=== PATIENT | female | born 1970 | race Caucasian/White ===

== ENCOUNTER → 2016-10-02 | Outpatient (CLI) | payer OTHER ==
--- NOTE | 2016-10-02 09:56 | USB ---
Reason for exam: follow-up at short interval from prior study. History: Took hormonal contraceptives for 11 years. Physical Findings: Nurse did not find any significant physical abnormalities on exam. US Breast BILAT Right breast ultrasound includes all four quadrants, the retroareolar region and axilla. Finding demonstrates a 0.7 x 0.6 x 0.4cm oval, cystic lesion at 5 o' clock versus 5 x 4 x 7mm previously, a 0.3 x 0.4 x 0.2cm oval, cystic lesion at 6 o'clock, a 0.9 x 0.9 x 0.5cm cystic cluster or two adjacent cysts at 7 o'clock and a 0.6 x 0.6 x 0.4cm oval, cystic lesion at 11 o'clock, slightly larger, previously 4 x 3 x 3mm but now completely simple in appearance. Left breast ultrasound includes all four quadrants, the retroareolar region and axilla. Finding demonstrates a 0.9 x 0.7 x 0.4cm oval, cystic lesion at 1 o' clock, a 0.9 x 0.7 x 0.3cm oval, cystic lesion at 3 o'clock, a 1.0 x 1.0 x 0.5cm oval, cystic lesion at 5 o'clock and a 0.7 x 0.6 x 0.6cm two adjacent cysts at 10 o'clock. These results were verbally communicated with the patient and result sheet given to the patient on 10/02/16. ASSESSMENT: Benign, BI-RAD 2 RECOMMENDATION: Routine screening mammogram of both breasts in 6 months. (Conisderation can be given to ordering this as a diagnostic exam given the pateint's breast nodularity) [facility]
== END | disposition home or self-care (01) ==
LOC: RADUSWWP 08:17
PROVIDERS: ATTEND Obstetrics & Gynecology
DX: R92.8 Other abnormal and inconclusive findings on diagnostic imaging of breast (principal)

== ENCOUNTER → 2018-04-19 | Outpatient (CLI) | payer OTHER ==
--- NOTE | 2018-04-22 09:38 | MM ---
Reason for exam: screening (asymptomatic). Last mammogram was performed 1 year ago. History: Took hormonal contraceptives for 11 years. Physical Findings: A clinical breast exam by your physician is recommended on an annual basis and results should be correlated with mammographic findings. MG 3D Screening Mammo W/Cad Bilateral CC and MLO view(s) were taken. Prior study comparison: April 18, 2017, bilateral MG 3d screening mammo w/cad. March 07, 2016, right breast MG 3d work up w/cad RT. The breast tissue is extremely dense which could obscure a lesion on mammography. Stable benign calcifications. There is chronic nodularity bilaterally. No significant changes when compared with prior studies. ASSESSMENT: Benign, BI-RAD 2 RECOMMENDATION: Routine screening mammogram of both breasts in 1 year.
== END ==
LOC: RADMAMWWP 07:27
PROVIDERS: ATTEND Obstetrics & Gynecology
DX: Z12.31 Encounter for screening mammogram for malignant neoplasm of breast (principal)
CPT/HCPCS: 77063; 77067

== ENCOUNTER → 2019-05-09 | Outpatient (CLI) | payer OTHER ==
--- NOTE | 2019-05-09 13:58 | MM ---
Reason for exam: screening (asymptomatic). Last mammogram was performed 1 year and 1 month ago. History: Took hormonal contraceptives for 11 years. Physical Findings: A clinical breast exam by your physician is recommended on an annual basis and results should be correlated with mammographic findings. MG 3D Screening Mammo W/Cad Bilateral CC and MLO view(s) were taken. Prior study comparison: April 19, 2018, bilateral MG 3d screening mammo w/cad. April 18, 2017, bilateral MG 3d screening mammo w/cad. The breast tissue is extremely dense which could obscure a lesion on mammography. There are benign appearing round oval circumscribed left masses waxing and waning over multiple prior exams most mammographically compatible with cysts. No suspicious abnormality. No significant changes when compared with prior studies. ASSESSMENT: Benign, BI-RAD 2 RECOMMENDATION: Routine screening mammogram of both breasts in 1 year.
== END | disposition home or self-care (01) ==
LOC: RADMAMWWP 07:02
PROVIDERS: ATTEND Obstetrics & Gynecology
DX: Z12.31 Encounter for screening mammogram for malignant neoplasm of breast (principal)
CPT/HCPCS: 77063; 77067

== ENCOUNTER → 2020-04-29 | Outpatient (CLI) | payer OTHER ==
--- NOTE | 2020-04-29 11:58 | BD ---
EXAMINATION TYPE: Axial Bone Density DATE OF EXAM: 04/29/2020 COMPARISON: NONE CLINICAL HISTORY: Screening for osteoporosis, Z 13.820, N 95.1 Height: 5 FT 7 IN Weight: 163 FRAX RISK QUESTIONS: Alcohol (3 or more units per day): NO Family History (Parent hip fracture): NO Glucocorticoids (More than 3mos): NO (Ex: prednisone, prednisolone, methylprednisolone, dexamethasone, and hydrocortisone). History of Fracture in Adulthood: NO Secondary Osteoporosis: 1. Type 1 Diabetes: NO 2. Hyperthyroidism: NO 3. Menopause before 45: NO 4. Malnutrition: NO 5. Chronic liver disease: NO Rheumatoid Arthritis: NO Current Tobacco Use: NO RISK FACTORS HISTORY OF: Active: SOMEWHAT Diet low in dairy products/other sources of calcium: NO Postmenopausal woman: [place]ATION AGE 41 NO SYMPTOMS OF MENOPAUSE MEDICATIONS: Additional Medications: ZETIA Additional History: EXAM MEASUREMENTS: Bone mineral densitometry was performed using the [employer]. Bone mineral density as measured about the Lumbar spine is: ----- L1-L4(G/cm2): 1.293 T Score Values are as follows: ----- L2: 0.9 ----- L3: 1.2 ----- L4: -0.1 ----- L1-L4: 0.9 BASELINE Bone mineral density about the R hip (g/cm2): 0.944 Bone mineral density about the L hip (g/cm2): 0.939 T Score values are as follows: -----R Neck: -0.7 -----L Neck: -0.7 -----R Total: -0.2 -----L Total: -0.1 BASELINE IMPRESSION: Normal (Values between +1 and -1 indicate normal bone mass). Consider repeating this study in 5 year s or sooner if there is some new clinical indication. NOTE: T-SCORE=SD OF THE YOUNG ADULT MEAN.
== END | disposition home or self-care (01) ==
LOC: RADBDWWP 08:34
PROVIDERS: ATTEND Obstetrics & Gynecology
DX: Z13.820 Encounter for screening for osteoporosis (principal)
CPT/HCPCS: 77080

== ENCOUNTER → 2020-05-12 | Outpatient (CLI) | payer OTHER ==
--- NOTE | 2020-05-14 09:27 | MM ---
Reason for exam: screening (asymptomatic). Last mammogram was performed 1 year ago. History: Took hormonal contraceptives for 11 years. Physical Findings: A clinical breast exam by your physician is recommended on an annual basis and results should be correlated with mammographic findings. MG 3D Screening Mammo W/Cad Bilateral CC, MLO, and XCCL view(s) were taken. Prior study comparison: May 09, 2019, bilateral MG 3d screening mammo w/cad. April 19, 2018, bilateral MG 3d screening mammo w/cad. The breast tissue is extremely dense which could obscure a lesion on mammography. There is chronic nodularity bilaterally. No significant changes when compared with prior studies. ASSESSMENT: Benign, BI-RAD 2 RECOMMENDATION: Routine screening mammogram of both breasts in 1 year.
== END | disposition home or self-care (01) ==
LOC: RADMAMWWP 08:11
PROVIDERS: ATTEND Obstetrics & Gynecology
DX: Z12.31 Encounter for screening mammogram for malignant neoplasm of breast (principal)
CPT/HCPCS: 77063; 77067

== ENCOUNTER → 2021-06-17 | Outpatient (CLI) | payer OTHER ==
--- NOTE | 2021-06-20 14:47 | MM ---
Reason for exam: screening (asymptomatic). Last mammogram was performed 1 year and 1 month ago. History: Took hormonal contraceptives for 11 years. Physical Findings: A clinical breast exam by your physician is recommended on an annual basis and results should be correlated with mammographic findings. MG 3D Screening Mammo W/Cad Bilateral CC and MLO view(s) were taken. Prior study comparison: May 12, 2020, bilateral MG 3d screening mammo w/cad. May 09, 2019, bilateral MG 3d screening mammo w/cad. Finding: There is a typically benign 19 mm equal density (isodense), circumscribed round mass in the lower inner quadrant, middle position of the left breast. No significant changes in finding since May 12, 2020 and May 09, 2019. ASSESSMENT: Benign, BI-RAD 2 RECOMMENDATION: Routine screening mammogram of both breasts in 1 year.
== END | disposition home or self-care (01) ==
LOC: RADMAMWWP 07:15
PROVIDERS: ATTEND Obstetrics & Gynecology
DX: Z12.31 Encounter for screening mammogram for malignant neoplasm of breast (principal)
CPT/HCPCS: 77063; 77067

== ENCOUNTER → 2022-06-19 | Outpatient (CLI) | payer OTHER ==
--- NOTE | 2022-06-19 17:55 | MM ---
Reason for Exam: Screening (asymptomatic). Last screening mammogram was performed 12 month(s) ago. Patient History: Menarche at age 11. First Full-Term at age 29. Late child-bearing (after 30). Postmenopausal. Patient used Hormonal Contraceptives for 11 years. Risk Values: Risa 5 year model risk: 1.5%. NCI Lifetime model risk: 11.8%. Prior Study Comparison: 05/09/2019 Bilateral Screening Mammogram, [facility]. 05/12/2020 Bilateral Screening Mammogram, [facility]. 06/17/2021 Bilateral Screening Mammogram, [facility]. Tissue Density: The breast tissue is heterogeneously dense. This may lower the sensitivity of mammography. Findings: Analyzed By CAD. There is no suspicious group of microcalcifications or new suspicious mass in either breast. No persistent abnormality on 3-D images. Overall Assessment: Negative, BI-RAD 1 Management: Screening Mammogram of both breasts in 1 year. 1. Patient should continue monthly self breast exams. 2. A clinical breast exam by your physician is recommended on an annual basis. 3. This exam should not preclude additional follow-up of suspicious palpable abnormalities. Electronically signed and approved by: Pasquale Berry M.D. Radiologist
== END | disposition home or self-care (01) ==
LOC: RADMAMWWP 07:33
PROVIDERS: ATTEND Obstetrics & Gynecology
DX: Z12.31 Encounter for screening mammogram for malignant neoplasm of breast (principal); Z78.0 Asymptomatic menopausal state
CPT/HCPCS: 77063; 77067

== ENCOUNTER → 2023-07-04 | Outpatient (CLI) | payer OTHER ==
--- NOTE | 2023-07-08 15:13 | MM ---
Reason for Exam: Screening (asymptomatic). Last mammogram was performed 1 year(s) and 1 month(s) ago. Patient History: Menarche at age 11. First Full-Term at age 29. Late child-bearing (after 30). Postmenopausal. Patient has history of breast feeding. Patient used Hormonal Contraceptives for 11 years. Risk Values: Risa 5 year model risk: 1.5%. NCI Lifetime model risk: 11.6%. Prior Study Comparison: 04/19/2018 Bilateral Screening Mammogram, [facility]. 05/09/2019 Bilateral Screening Mammogram, [facility]. 05/12/2020 Bilateral Screening Mammogram, [facility]. 06/17/2021 Bilateral Screening Mammogram, [facility]. 06/19/2022 Bilateral MG 3D screening mammo w/cad, [facility]. Tissue Density: The breast tissue is heterogeneously dense. This may lower the sensitivity of mammography. Findings: Analyzed By CAD. The pattern is symmetrical. There are round segmental calcifications within the upper outer middle left breast, a changed from comparison. Magnification views recommended. Right breast: No suspicious groups of microcalcifications, spiculated or lobular masses, architectural distortion or other secondary signs of malignancy are mammographically apparent. Overall Assessment: Incomplete: need additional imaging evaluation, BI-RAD 0 Management: Diagnostic Mammogram of the left breast. A negative mammogram report should not preclude additional follow up of suspicious palpable abnormalities. Patient should continue monthly self breast exam. A clinical breast exam by your physician is recommended on an annual basis and results should be correlated with mammographic findings. Electronically signed and approved by: Miguel Armendariz D.O. Radiologis
== END | disposition home or self-care (01) ==
LOC: RADMAMWWP 07:12
PROVIDERS: ATTEND Obstetrics & Gynecology
DX: Z12.31 Encounter for screening mammogram for malignant neoplasm of breast (principal); Z78.0 Asymptomatic menopausal state
CPT/HCPCS: 77063; 77067

== ENCOUNTER → 2023-07-11 | Outpatient (CLI) | payer OTHER ==
--- NOTE | 2023-07-11 08:28 | MM ---
Reason for Exam: Additional evaluation requested from abnormal screening. Last screening mammogram was performed less than 1 month ago. Patient History: Menarche at age 11. First Full-Term at age 29. Late child-bearing (after 30). Postmenopausal. Patient has history of breast feeding. Patient used Hormonal Contraceptives for 11 years. Risk Values: Risa 5 year model risk: 1.5%. NCI Lifetime model risk: 11.6%. Prior Study Comparison: 06/17/2021 Bilateral Screening Mammogram, [facility]. 06/19/2022 Bilateral MG 3D screening mammo w/cad, [facility]. 07/04/2023 Bilateral MG 3D screening mammo w/cad, [facility]. Tissue Density: Left: The breast tissue is heterogeneously dense. This may lower the sensitivity of mammography. Findings: Analyzed By CAD. Grouped amorphous calcifications 12-1 o'clock left breast middle depth persist on magnification views. Tissue sampling is recommended. Overall Assessment: Suspicious, BI-RAD 4 Management: Stereotactic Core Biopsy of the left breast. . Results were given to the patient verbally at the time of exam. Electronically signed and approved by: Pasquale Berry M.D. Radiologist
== END | disposition home or self-care (01) ==
LOC: RADMAMWWP 07:24
PROVIDERS: ATTEND Obstetrics & Gynecology
DX: R92.332 Mammographic heterogeneous density, left breast (principal); R92.1 Mammographic calcification found on diagnostic imaging of breast; Z78.0 Asymptomatic menopausal state
CPT/HCPCS: 77061; 77065

== ENCOUNTER → 2023-07-23 | Day surgery (SDC) | payer OTHER ==
[2023-07-23 07:45] VITALS: RESP 16
[2023-07-23 09:13] VITALS: BP 107/75; PULSE 70; TEMP 98.1
--- NOTE | 2023-07-31 07:46 | MM ---
Risk Values: Risa 5 year model risk: 1.5%. NCI Lifetime model risk: 11.6%. Prior Study Comparison: 06/19/2022 Bilateral MG 3D screening mammo w/cad, [facility]. 07/04/2023 Bilateral MG 3D screening mammo w/cad, [facility]. 07/11/2023 Left MG 3D work up w/cad , [facility]. Pathology Description: Marker Left Behind. Specimen Radiograph. Calcium Found: Yes Approach: CC FA Needle Type: Eviva Cores: 6 Skin Nicks: 1 Gauge: 9 The calcifications in question within the left breast were targeted by the undersigned. Procedure was performed by the undersigned. Informed consent was obtained and all of the patients questions were answered. The standard sterile technique was utilized and appropriate local anesthesia was obtained with 1% licocaine. Mammotome probe was advanced and multiple core samples were obtained and sent to pathology for interpretation. Microclip marker was deployed at the site of biopsy. Post procedural mammogram demonstrates appropriate deployment of radiopaque clip marker. The patient tolerated the procedure well and left the department in stable condition. Pathology results are pending. Impression: Successful stereotactic core biopsy left breast. Pathology Results: Result: High risk, Atypical lobular hyperplasia. LEFT BREAST, STEREOTACTIC CORE BIOPSY: Features of atypical lobular hyperplasia (ALH) with focal features suspicious for lobular carcinoma in situ (LCIS). See note. Fibrocystic change with fibrosis, focal microcalcification and apocrine metaplasia present. Focal benign adenosis. Notes In order to confirm the diagnosis, immunostaining with E-Cadherin is performed with appropriate controls on block A2. E-Cadherin staining shows diminished to negative staining within areas of atypical lobular hyperplasia and focal areas suspicious for LCIS in block A2. Microcalcification is appreciated within these areas focally. Intradepartmental consultation with Dr. Axel Jolly is in agreement with the assessment of ALH with focal features suspicious for LCIS. No invasive carcinoma is seen. Overall Assessment: High risk Management: Surgical Consultation of the left breast. Electronically signed and approved by: López Zelaya M.D. Radiologis
== END ==
LOC: RADMAMWWP 07:31
PROVIDERS: ATTEND Surgery
DX: N60.22 Fibroadenosis of left breast (principal); N60.82 Other benign mammary dysplasias of left breast
CPT/HCPCS: 88305; 88342; 19081; A4648; J2001

== ENCOUNTER → 2024-01-22 | Outpatient (CLI) | payer OTHER ==
--- NOTE | 2024-01-22 13:38 | MM ---
Reason for Exam: Follow-up at short interval from prior study. Last screening mammogram was performed 6 month(s) ago. Patient History: Menarche at age 11. First Full-Term at age 29. Late child-bearing (after 30). Postmenopausal. Patient has history of breast feeding. Previous Atypical Lobular Hyperplasia at age 52. Patient used Hormonal Contraceptives for 11 years. 07/23/2023, High risk MG stereo VAD BX LT on the left side. Risk Values: Risa 5 year model risk: 3.6%. NCI Lifetime model risk: 24.1%. Prior Study Comparison: 06/19/2022 Bilateral MG 3D screening mammo w/cad, [facility]. 07/04/2023 Bilateral MG 3D screening mammo w/cad, [facility]. 07/11/2023 Left MG 3D work up w/cad LT, [facility]. Tissue Density: Left: The breasts are heterogeneously dense, which may obscure small masses. Findings: Analyzed By CAD. Postbiopsy changes left breast. No new cluster of microcalcifications or concerning cluster at this time. Overall Assessment: Benign, BI-RAD 2 Management: Diagnostic Mammogram of both breasts in 6 months. . Results were given to the patient verbally at the time of exam. Patient should continue monthly self-breast exams. A clinical breast exam by your physician is recommended on an annual basis. This exam should not preclude additional follow-up of suspicious palpable abnormalities. Note on Risa scores and lifetime risk: 1. A Risa score greater than 3% is considered moderate risk. If this is the case, consider specialist referral to assess eligibility for a risk reducing agent. 2. If overall lifetime risk for the development of breast cancer is 20% or higher, the patient may qualify for future screening with alternating mammogram and breast MRI. Electronically signed and approved by: López Zelaya M.D. Radiologis
== END | disposition home or self-care (01) ==
LOC: RADMAMWWP 13:05
PROVIDERS: ATTEND Surgery
DX: R92.8 Other abnormal and inconclusive findings on diagnostic imaging of breast (principal); R92.332 Mammographic heterogeneous density, left breast; Z78.0 Asymptomatic menopausal state
CPT/HCPCS: 77061; 77065

== ENCOUNTER → 2024-07-28 | Outpatient (CLI) | payer OTHER ==
--- NOTE | 2024-07-28 10:19 | MM ---
Reason for Exam: Follow-up at short interval from prior study. Last mammogram was performed 1 year(s) and 1 month(s) ago. Patient History: Menarche at age 11. First Full-Term at age 29. Late child-bearing (after 30). Postmenopausal. Patient has history of breast feeding. Previous Atypical Lobular Hyperplasia at age 52. Patient used Hormonal Contraceptives for 11 years. 07/23/2023, High risk MG stereo VAD BX LT on the left side. Risk Values: Risa 5 year model risk: 3.6%. NCI Lifetime model risk: 24.1%. Prior Study Comparison: 10/24/2013 Bilateral Screening Mammogram, [facility]. 12/10/2014 Bilateral Screening Mammogram, [facility]. 03/01/2016 Bilateral Screening Mammogram, [facility]. 03/07/2016 Right Diagnostic Mammogram, [facility]. 03/07/2016 Bilateral Diagnostic Ultrasound, [facility]. 10/02/2016 Bilateral Diagnostic Ultrasound, [facility]. 04/18/2017 Bilateral Screening Mammogram, [facility]. 04/20/2017 Right Diagnostic Ultrasound, [facility]. 04/19/2018 Bilateral Screening Mammogram, [facility]. 05/09/2019 Bilateral Screening Mammogram, [facility]. 05/12/2020 Bilateral Screening Mammogram, [facility]. 06/17/2021 Bilateral Screening Mammogram, [facility]. 06/19/2022 Bilateral MG 3D screening mammo w/cad, [facility]. 07/04/2023 Bilateral MG 3D screening mammo w/cad, [facility]. 07/11/2023 Left MG 3D work up w/cad LT, [facility]. 01/22/2024 Left MG 3D diag mammo w/cad LT, [facility]. Tissue Density: The breasts are heterogeneously dense, which may obscure small masses. Findings: Analyzed By CAD. New biopsy clip left breast. Group of heterogeneous calcifications on lateral view is not clearly identified on CC view adjacent to the clip. No new mass clearly seen in either breast. Overall Assessment: Probably benign, BI-RAD 3 Management: Diagnostic Mammogram of the left breast in 6 months. Short-term diagnostic mammogram follow-up on left side. Results were given to the patient verbally at the time of exam. Patient should continue monthly self-breast exams. A clinical breast exam by your physician is recommended on an annual basis. This exam should not preclude additional follow-up of suspicious palpable abnormalities. Note on Risa scores and lifetime risk: 1. A Risa score greater than 3% is considered moderate risk. If this is the case, consider specialist referral to assess eligibility for a risk reducing agent. 2. If overall lifetime risk for the development of breast cancer is 20% or higher, the patient may qualify for future screening with alternating mammogram and breast MRI. [facility], , 07/28/2024 10:16 AM. Electronically signed and approved by: Ryan Ornelas M.D.
== END | disposition home or self-care (01) ==
LOC: RADMAMWWP 09:27
PROVIDERS: ATTEND Surgery
DX: R92.8 Other abnormal and inconclusive findings on diagnostic imaging of breast (principal); R92.333 Mammographic heterogeneous density, bilateral breasts; Z78.0 Asymptomatic menopausal state
CPT/HCPCS: 77062; 77066